=== PATIENT | female | born 1990 | race Caucasian/White ===

== ENCOUNTER 2020-07-27 22:53 | Emergency (ER) | payer SELFPAY ==
[~2020-07-27] VITALS: Ht 157.4 cm; Wt 72.6 kg
[2020-07-27] MEDS ORDERED: PENICILLIN VK500 MG PO (23:05)
== END 2020-07-27 23:01 | disposition home or self-care (01) ==
LOC: ED 22:53
DX: K02.9 Dental caries, unspecified (principal); K08.89 Other specified disorders of teeth and supporting structures

== ENCOUNTER 2020-07-28 14:34 | Emergency (ER) | payer SELFPAY ==
[~2020-07-28] VITALS: Ht 152.4 cm; Wt 49.9 kg
[~2020-07-28 14:34] MED LIST: PENICILLIN VK500 MG PO
== END 2020-07-28 14:58 | disposition left against medical advice (07) ==
LOC: ED 14:34
DX: K08.89 Other specified disorders of teeth and supporting structures (principal); Z53.21 Procedure and treatment not carried out due to patient leaving prior to being seen by health care provider

== ENCOUNTER 2021-03-11 06:48 | Emergency (ER) | payer MEDICAID ==
[~2021-03-11] VITALS: Ht 154.9 cm; Wt 59.0 kg
[2021-03-11] MEDS ORDERED: PREDNISONE20 M1 PO (08:20)
== END 2021-03-11 08:26 | disposition home or self-care (01) ==
LOC: ED 06:48
DX: J45.40 Moderate persistent asthma, uncomplicated (principal); F17.200 Nicotine dependence, unspecified, uncomplicated; Z79.2 Long term (current) use of antibiotics

== ENCOUNTER 2021-05-16 23:27 | Emergency (ER) | payer OTHER ==
[~2021-05-16 23:27] MED LIST changes: +PREDNISONE20 M1 PO
== END 2021-05-17 02:41 | disposition left against medical advice (07) ==
LOC: ED 23:27
DX: K08.89 Other specified disorders of teeth and supporting structures (principal); R51.9 Headache, unspecified; Z53.21 Procedure and treatment not carried out due to patient leaving prior to being seen by health care provider